=== PATIENT | female | born 1945 | race Two or more races ===

== ENCOUNTER 2020-12-27 03:19 | Emergency (ER) | payer OTHER, MEDICAID ==
[~2020-12-27] VITALS: Ht 149.9 cm; Wt 57.6 kg
[2020-12-27] MEDS ORDERED: MORPHINE SULFATE 4 MG/ML SYR/VIAL IV STA (04:20)
[2020-12-27] MEDS ORDERED: ONDANSETRON HCL 4 MG/2 ML VIAL IV ONE ×2 (04:30→06:30)
[2020-12-27 04:48] LABS: Basophils # (auto) 0 10 ^3/uL (0-0.2); Eosinophils # (auto) 0.1 10 ^3/uL (0-0.8); Eosinophils % (auto) 1.2 % (0.0-7.0)
[2020-12-27 04:49] LABS: Basophils % (auto) 0.2 % (0.0-2.0); Hematocrit 35.2 % (36.0-46.0); Hemoglobin 11.5 g/dL (12.2-16.2); Lymphocytes % (auto) 24.6 % (10.0-50.0); Mean Corpuscular Hemoglobin 25.8 pg (28.0-32.0); Mean Corpuscular Hgb Conc. 32.5 g/dL (32.0-36.0); Mean Corpuscular Volume 79.3 fL (80.0-100.0); Monocytes # (auto) 0.6 10 ^3/uL (0-1.3); Monocytes % (auto) 8.1 % (0.0-12.0); Neutrophils # (auto) 5.3 10 ^3/uL (1.6-8.6); Neutrophils % (auto) 65.9 % (37.0-80.0); Nucleated Red Blood Cells % 0.1 %; Red Blood Cells 4.44 10^6/uL (4.0-5.20); Red Cell Distribution Width 19.3 % (11.8-14.3)
[2020-12-27 05:01] LABS: Potassium 4.1 mmol/L (3.5-5.1)
[2020-12-27 05:10] LABS: Albumin 2.7 g/dL (3.4-5.0); BUN/Creatinine Ratio 34.9; Bilirubin, Total 0.7 mg/dL (0.2-1.0); Calcium 8.6 mg/dL (8.5-10.1); Total Protein 7.1 g/dL (6.4-8.2)
[2020-12-27] MEDS ORDERED: IOHEXOL 300 MG/ML 100ML BOTTLE IJ ONE (06:27)
[2020-12-27] MEDS ORDERED: MORPHINE SULFATE INJECTION 2 MG/ML SYRG IV ONE ×2 (06:30→12:30)
[2020-12-27] MEDS ORDERED: SODIUM CHLORIDE 0.9% 1,000 ML IV ONE (07:00)
[2020-12-27 07:35] LABS: Magnesium 2.5 mg/dL (1.6-2.6)
[2020-12-27] MEDS ORDERED: FLEET MINERAL OIL ENEMA 133 ML PR ONE (08:00)
[2020-12-27 14:00] VITALS: BP 118/46
== END 2020-12-27 16:53 | disposition home or self-care (01) ==
LOC: EDBD 03:19 → ER 03:19 → OVERFLOW 15:43 → UNDOADMIN 15:43 → ER 16:53 → UNDODISIN 16:53
DX: M48.56XA Collapsed vertebra, not elsewhere classified, lumbar region, initial encounter for fracture (principal); K56.7 Ileus, unspecified; E87.1 Hypo-osmolality and hyponatremia; E11.9 Type 2 diabetes mellitus without complications; K56.49 Other impaction of intestine; N20.0 Calculus of kidney; I10 Essential (primary) hypertension; M19.90 Unspecified osteoarthritis, unspecified site; E66.9 Obesity, unspecified; D50.9 Iron deficiency anemia, unspecified; K44.9 Diaphragmatic hernia without obstruction or gangrene; K57.30 Diverticulosis of large intestine without perforation or abscess without bleeding; I25.10 Atherosclerotic heart disease of native coronary artery without angina pectoris; M41.86 Other forms of scoliosis, lumbar region; Z79.899 Other long term (current) drug therapy; X58.XXXA Exposure to other specified factors, initial encounter; Y93.89 Activity, other specified; Y92.89 Other specified places as the place of occurrence of the external cause; Y99.8 Other external cause status
CPT/HCPCS: 36415; 71046; 74176; 74177; 80053; 83690; 83735; 84443; 85025; 93005; 96361; 96374; 96375; 96376; 99285; J2270; J2405; Q9967; G0378

== ENCOUNTER 2025-04-04 21:52 | Emergency (ER) | payer OTHER, MEDICAID ==
[~2025-04-04] VITALS: Ht 149.9 cm; Wt 72.0 kg
[2025-04-04] MEDS ORDERED: EPINEPHrine HCL 1 MG/10 ML SYRG IV ONE (21:53)
--- NOTE | 2025-04-04 22:27 | ED.PDOC ---
SOB-HPI HPI Comments 79-year-old female who came to ER via EMS for shortness of breath. Patient has history of hypertension, diabetes, arthritis and anemia. For the past hour, patient developed sudden onset shortness a breath. Denies any acute chest pains or cough. Denies any fever. Patient was saturating at 75% at room air on scene . Breathing treatment given a provided temporary relief. At 2 L/min patient is saturating 86%. 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 History: No Pertinent TEST FIXTURE DESIGNER History Family History Family History: Reviewed,noncontributory to illness Social History Smoker: Non-Smoker Alcohol: Denies ETOH Use Drugs: Denies Drug Use Lives In: Home Constitutional: reports: weakness; denies: chills, diaphoresis, fatigue, fever, malaise, sweats, others EENTM: denies: blurred vision, double vision, ear bleeding, ear discharge, ear drainage, ear pain, ear ringing, eye pain, eye redness, hearing loss, mouth pain, mouth swelling, nasal discharge, nose bleeding, nose congestion, nose eliazar n, photophobia, tearing, throat pain, throat swelling, voice changes, others Respiratory: reports: SOB at rest, shortness of breath, SOB with excertion; denies: cough, hemoptysis, orthopnea, stridor, wheezing, others Cardiovascular: denies: chest pain, dizzy spells, diaphoresis, Dyspnea on exertion, edema, irregular heart beat, left arm pain, lightheadedness, palpitations, PND, syncope, others Gastrointestinal: denies: abdomen distended, abdominal pain, blood streaked bowels, constipated, diarrhea, dysphagia, difficulty swallowing, hematemesis, melena, nausea, poor appetite, poor fluid intake, rectal bleeding, rectal pain, vomiting, others Genitourinary: denies: abnormal vagina bleeding, burning, dyspareunia, dysuria, flank pain, frequency, hematuria, incontinence, pain, , vagina discharge, urgency, others Neurological: denies: dizziness, fainting, headache, left sided numbness, left sided weakness, numbness, paresthesia, pre-existing deficit, right sided n umbness, right sided weakness, seizure, speech problems, tingling, tremors, weakness, others Musculoskeletal: denies: back pain, gout, joint pain, joint swelling, muscle pain, muscle stiffness, neck pain, others Integumetry: denies: bruises, change in color, change in hair/nails, dryness, laceration, lesions, lumps, rash, wounds, others Allergic/Immunocompromised: denies: Difficulty Healing, Frequent Infections, Hives, Itching, others Hematologic/Lymphatic: denies: anemia, blood clots, easy bleeding, easy bruising, swollen glands, others Endocrine: denies: excessive hunger, excessive sweating, excessive thirst, excessive urination, flushing, intolerance to cold, intolerance to heat, unexplained weight gain, unexplained weight loss, others Psychiatric: denies: anxiety, bipolar disorder, depression, hopeless, panic disorder, schizophrenia, sleepless, suicidal, others Physical Exam General Appearance: No Apparent Distress, Normal HEENT: Normal ENT Inspection, Pharynx Normal, TMs Normal Neck: Full Range of Motion, Non-Tender, Normal, Normal Inspection Respiratory: Chest Non-Tender, Lungs Clear, No Accessory Muscle Use, No Respiratory Distress, Normal Breath Sounds Cardiovascular: No Edema, No JVD, No Murmur, No Gallop, Normal Peripheral Pulses, Regular Rate/Rhythm Breast Exam: Deferred Gastrointestinal: No Organomegaly, Non Tender, No Pulsatile Mass, Normal Bowel Sounds, Soft Genitalia: Deferred Pelvic: Deferred Rectal: Deferred Extremities: No calf tenderness, Normal capillary refill, Normal inspection, Normal range of motion, Non-tender, No pedal edema Musculoskeletal : Apperance: Normal Neurologic: Alert, gas turbine assembler II-XII nml as Tested, No Motor Deficits, Normal Affect, Normal Mood, No Sensory Deficits Cerebellar Function: Normal Reflexes: Normal Skin: Dry, Normal Color, Warm Lymphatic: No Adenopathy Was a procedure done? Was a procedure done?: No Differential Dx Differential Diagnosis: Anxiety, Asthma, CHF, COPD, Myocardial infarction, Pneu monia, Respiratory Distress, Other (Anemia) X-Ray, Labs, Meds, VS Vital Signs Date Time Temp Pulse Resp B/P (MAP) Pulse Ox O2 Delivery O2 Flow Rate FiO2 04/05/25 00:07 87 22 100 Bi-Pap+ 85 85 04/05/25 00:00 87 20 107/44 (65) 100 04/04/25 23:49 96 Bi-Pap+ 85 85 04/04/25 23:30 88 102/58 96 Nasal BiPAP Mask 30 04/04/25 23:00 97.8 89 20 119/82 (94) 91 97.8 04/04/25 22:14 89 04/04/25 21:52 99.5 87 24 110/86 (94) 88 99.5 Lab Test 04/04/25 23:23 04/04/25 22:50 04/04/25 22:27 Range/Units White Blood Count 13.3 H 4.4-10.8 10^3/uL Red Blood Count 4.05 4.0-5.20 10^6/uL Hemoglobin 11.6 L 12.2-16.2 g/dL Hematocrit 36.8 36.0-46.0 % Mean Corpuscular Volume 91.0 80.0-100.0 fL Mean Corpuscular Hemoglobin 28.7 28.0-32.0 pg Mean Corpuscular Hemoglobin Concent 31.6 L 32.0-36.0 g/dL Red Cell Distribution Width 14.7 H 11.8-14.3 % Platelet Count 271 140-450 10^3/uL Mean Platelet Volume 6.7 L 6.9-10.8 fL Neutrophils (%) (Auto) 88.0 H 37.0-80.0 % Lymphocytes (%) (Auto) 4.3 L 10.0-50.0 % Monocytes (%) (Auto) 7.4 0.0-12.0 % Eosinophils (%) (Auto) 0.2 0.0-7.0 % Basophils (%) (Auto) 0.1 0.0-2.0 % Neutrophils # (Auto) 11.7 H 1.6-8.6 10 ^3/uL Lymphocytes # (Auto) 0.6 0.4-5.4 10 ^3/uL Monocytes # (Auto) 1.0 0-1.3 10 ^3/uL Eosinophils # (Auto) 0 0-0.8 10 ^3/uL Basophils # (Auto) 0 0-0.2 10 ^3/uL Nucleated Red Blood Cells 0.1 % Troponin I High Sensitivity Pending 66 *H </=34 ng/L B-Type Natriuretic Peptide Pending Blood Gas Specimen Type Arterial Blood Gas Sample Site Left brachial Blood Gas Patient Temperature 37.0 Arterial Blood Date Drawn [id number] Arterial Blood pH 7.259 L 7.350-7.450 Arterial Blood Partial Pressure CO2 72.7 *H 32.0-45.0 mmHg Arterial Blood Partial Pressure O2 69.6 L 83.0-108.0 mmHg Arterial Blood HCO3 31.8 H 21.0-28.0 mmol/L Arterial Blood Oxygen Saturation 91.7 L 94.0-98.0 % Arterial Blood Base Excess 2.8 -2.0-3.0 mmol/L Arterial Blood Oxyhemoglobin 90.0 L 94.0-98.0 % Arterial Blood Carboxyhemoglobin 1.4 0.5-1.5 % Arterial Blood Methemoglobin 0.5 0.0-1.5 % Roosevelt Test N/a Blood Gas Total Hemoglobin 12.70 12.0-16.0 g/dL Blood Gas Liter Flow 4.00 Blood Gas Modality Mask - bipap FiO2 % 36.0 Blood Gas Critical Value Read Back yes Blood Gas Notified Whom mohit Retana md Blood Gas Notified Time [id number] Blood Gas Notified By pablo woodruff, Prothrombin Time 10.4 9.3-11.8 sec Prothrombin Time INR 0.98 0.9-1.15 Activated Partial Thromboplast Time 21.9 L 24.5-34.5 SEC Sodium Level 138 136-145 mmol/L Potassium Level 3.7 3.5-5.1 mmol/L Chloride Level 101 98-107 mmol/L Carbon Dioxide Level 27 20-31 mmol/L Anion Gap 10 5-15 Blood Urea Nitrogen 30 H 9-23 mg/dL Creatinine 1.56 H 0.550-1.02 mg/dL Glomerular Filtration Rate Calc 33 >90 mL/min BUN/Creatinine Ratio 19.2 10.0-20.0 Serum Glucose 144 H 74-106 mg/dL Calcium Level 9.0 8.7-10.4 mg/dL Magnesium Level 2.5 1.6-2.6 mg/dL Total Bilirubin 0.4 0.2-1.0 mg/dL Aspartate Amino Transferase (AST) 21 13-40 U/L Alanine Aminotransferase (ALT) 10 7-40 U/L Alkaline Phosphatase 97 46-116 U/L Total Protein 7.7 5.7-8.2 g/dL Albumin 4.1 3.2-4.8 g/dL CHEST RADIOGRAPH Indication: SOB Technique: Single frontal view of the chest was obtained COMPARISON: None FINDINGS: Lines and Tubes: None Lungs: Mild diffuse increased prominence of the pulmonary vasculature. No evidence of focal consolidation. Pleura: No effusion. No pneumothorax. Cardiomediastinal contours: Cardiomegaly. Atherosclerotic vascular calcifications. Bones: Unremarkable IMPRESSION: 1. No acute disease. 2. Mild diffuse increased prominence of the pulmonary vasculature. 3. Cardiomegaly. Time of 1ST Reevaluation: 22:23 Reevaluation 1ST: Unchanged Patient Education/Counseling: Diagnosis, Treatment Family Education/Counseling: No Family Present Departure 1 Departure Time of Disposition: 00:12 Impression: Primary Impression: Respiratory failure with hypoxia and hypercapnia Additional Impressions: COPD with acute exacerbation Acute coronary syndrome Disposition: ADMITTED INPATIENT Admit to: Tele Condition: Guarded Comments 79F with Acute Respiratory Distress Chief Complaint: Shortness of breath History of Present Illness: 79-year-old female with history of COPD, brought in by EMS from home due to acute shortness of breath. On initial assessment by EMS, patient was found to be hypoxic with oxygen saturations in mid-70s to low 80s on room air, which improved to low-mid 90s with supplemental oxygen. In the ED, patient received nebulizer treatment. Notably, initial workup revealed elevated troponins and acu te kidney injury, suggesting multiple organ involvement in her acute presentation. Review of Systems: Constitutional: Acute distress with respiratory symptoms Respiratory: Shortness of breath, hypoxia Cardiovascular: No chest pain reported Otherwise limited due to acute presentation Medications: Not documented in current mortgage closing clerk Allergies: Not documented in current mortgage closing clerk Past Medical History: 1. Chronic Obstructive Pulmonary Disease (COPD) 2. Hypertension 3. Diabetes 4. Arthritis 5. Anemia Vital Signs: O2 Saturation: 70s-80s% on room air O2 Saturation: Low-mid 90s% on supplemental oxygen Physical Exam: Limited physical exam documentation in mortgage closing clerk Lab Results: CBC: - WBC: 13.3 (Elevated) - Hemoglobin: 11.6 - Hematocrit: 36.8 - Platelets: 271 (Normal) Blood Gas: - pH: 7.26 (Low) - pCO2: 73 (Elevated) Chemistry: - Creatinine: 31.56 (Severely elevated) Cardiac Enzymes: - Initial Troponin: 66 - Repeat Troponin: 77 (Uptrending) Imaging and Other Relevant Results: Chest X-ray: - Cardiomegaly present - No acute pathology noted Medical Decision Making: Summary Statement: 79-year-old female with multiple comorbidities presenting with acute respiratory distress, found to have COPD exacerbation complicated by acute coronary syndrome and acute kidney injury. Problem List: 1. Acute on chronic respiratory failure with hypoxia and hypercapnia 2. COPD exacerbation 3. Acute coronary syndrome 4. Acute kidney injury Differential Diagnosis: COPD exacerbation, Acute coronary syndrome, CHF exacerbation, Pneumonia, Pulmonary embolism, Acute kidney injury ED Course: Patient received nebulizer treatment, aspirin, and was placed on BiPAP. Decision made to admit patient due to multiple acute medical issues requiring inpatient management. Assessment and Plan: 1. Acute on chronic respiratory failure with hypoxia and hypercapnia: - Continue BiPAP support - Bronchodilator therapy - Close monitoring of respiratory status 2. COPD Exacerbation: - Continue bronchodilators - Consider systemic steroids - Supplemental oxygen as needed 3. Acute Coronary Syndrome: - Initiated on aspirin - Serial troponin monitoring - Cardiology consultation recommended 4. Acute Kidney Injury: - Monitor fluid status - Avoid nephrotoxic medications - Serial creatinine monitoring Disposition: Admit to hospital for management of multiple acute medical issues Billing Information: ICD-10: J44.1 - COPD with acute exacerbation ICD-10: J96.21 - Acute and chronic respiratory failure with hypoxia ICD-10: J96.22 - Acute and chronic respiratory failure with hypercapnia ICD-10: I21.9 - Acute myocardial infarction, unspecified ICD-10: N17.9 - Acute kidney failure, unspecified Critical Care Note Critical Care Time?: Yes (45 min-critical care time only) Critical care comment: Shortness a breath, bipap Total critical care time: Approximately 36 minutes Due to a high probability of clinically significant, life threatening deterioration, the patient required my highest level of preparedness to interv xu emergently and I personally spent this critical care time directly and personally managing the patient. This critical care time included obtaining a history; examining the patient; pulse oximetry; ordering and review of studies; arranging urgent treatment with development of a management plan; evaluation of patient's response to treatment; frequent reassessment; and, discussions with other providers. This critical care time was performed to assess and manage the high probability of imminent, life-threatening deterioration that could result in multi-organ failure. It was exclusive of separately billable procedures and treating other patients. Stability Stability form required: No Heart Score Heart Score: Heart Score Response (Comments) Value History Moderate Suspicious 1 EKG Repolarization Disturb 1 Age >65 2 Risk Factors >3 or Hx ASHD 2 Troponin >3 x's Normal limit 2 Total 8 I personally scribed for MARIA INES RETANA MD (RYDER) on 04/04/25 at 22:27. Electronically submitted by Cal Mosley ([facility] [employer] I personally scribed for MARIA INES RETANA MD (RYDER) on 04/04/25 at 22:33. Electronically submitted by Cal Mosley ([facility] [employer]). I personally scribed for MARIA INES RETANA MD (RYDER) on 04/04/25 at 23:16. Electronically submitted by Cal Mosley ([facility]). I personally scribed for MARIA INES RETANA MD (RYDER) on 04/04/25 at 23:22. Electronically submitted by Cal Mosley ([facility]). MARIA INES RETANA MD Apr 04, 2025 22:27
--- NOTE | 2025-04-04 22:50 | DVH ---
CHEST RADIOGRAPH Indication: SOB Technique: Single frontal view of the chest was obtained COMPARISON: None FINDINGS: Lines and Tubes: None Lungs: Mild diffuse increased prominence of the pulmonary vasculature. No evidence of focal consolida tion. Pleura: No effusion. No pneumothorax. Cardiomediastinal contours: Cardiomegaly. Atherosclerotic vascular calcifications. Bones: Unremarkable IMPRESSION: 1. No acute disease. 2. Mild diffuse increased prominence of the pulmonary vasculature. 3. Cardiomegaly.
[2025-04-04 22:54] LABS: Base Excess 2.8 mmol/L (-2.0-3.0)
[2025-04-04 23:00] VITALS: TEMP 97.8
[2025-04-04 23:13] LABS: INR 0.98 (0.9-1.15); Partial Thromboplastin Time 21.9 SEC (24.5-34.5); Prothrombin Time 10.4 sec (9.3-11.8)
--- NOTE | 2025-04-04 23:25 | ECG ---
[facility] Test Date: 2025-04-04 Test Time: 22:14:32 Pat Name: LIMA ALLEN Department: ED Room: Gender: F Barmaid: MYLES : 1945 Requested By: MARIA INES RETANA Order Number: [id number] Reading MD: Wiliam Oneill Measurements Intervals [place] Rate: 89 P: 64 W[place]: 151 QRS: 37 QRSD: 85 T: 49 QT: 354 QTc: 431 Interpretive Statements Sinus rhythm Probable left atrial enlargement Borderline T abnormalities, anterior leads Minimal ST elevation, inferior leads Electronically Signed On 04-09-2025 20:44:47 PDT by Wiliam Oneill Please click the below link to view image of tracing.
[2025-04-04 23:30] VITALS: BP 102/58; PULSE 88; O2SAT 96
[2025-04-04 23:36] LABS: Alanine Aminotransferase 10 U/L (7-40); Albumin 4.1 g/dL (3.2-4.8); Alkaline Phosphatase 97 U/L (46-116); Anion Gap 10 (5-15); Aspartate Aminotransferase 21 U/L (13-40); BUN/Creatinine Ratio 19.2 (10.0-20.0); Bilirubin, Total 0.4 mg/dL (0.2-1.0); Carbon Dioxide 27 mmol/L (20-31); Chloride 101 mmol/L (98-107); Magnesium 2.5 mg/dL (1.6-2.6); Potassium 3.7 mmol/L (3.5-5.1); Sodium 138 mmol/L (136-145); Total Protein 7.7 g/dL (5.7-8.2)
[2025-04-04 23:43] LABS: Blood Urea Nitrogen 30 mg/dL (9-23); Glucose 144 mg/dL (74-106)
[2025-04-04 23:50] LABS: Basophils # (auto) 0 10 ^3/uL (0-0.2); Basophils % (auto) 0.1 % (0.0-2.0); Eosinophils # (auto) 0 10 ^3/uL (0-0.8); Eosinophils % (auto) 0.2 % (0.0-7.0); Hematocrit 36.8 % (36.0-46.0); Hemoglobin 11.6 g/dL (12.2-16.2); Lymphocytes # (auto) 0.6 10 ^3/uL (0.4-5.4); Lymphocytes % (auto) 4.3 % (10.0-50.0); Mean Corpuscular Hemoglobin 28.7 pg (28.0-32.0); Mean Corpuscular Hgb Conc. 31.6 g/dL (32.0-36.0); Monocytes % (auto) 7.4 % (0.0-12.0); Neutrophils # (auto) 11.7 10 ^3/uL (1.6-8.6); Nucleated Red Blood Cells % 0.1 %; Platelet Count (auto) 271 10^3/uL (140-450); Red Blood Cells 4.05 10^6/uL (4.0-5.20); Red Cell Distribution Width 14.7 % (11.8-14.3); White Blood Cell 13.3 10^3/uL (4.4-10.8)
[2025-04-05] VITALS: BP 107/44
[2025-04-05 00:07] VITALS: PULSE 87; RESP 22; O2SAT 100
[2025-04-05 01:16] LABS: Base Excess 4.1 mmol/L (-2.0-3.0)
[2025-04-05] MEDS ORDERED: ETOMIDATE (2MG/ML) 20ML VIAL IV ONE ×2 (01:30→01:31)
[2025-04-05] MEDS ORDERED: ROCURONIUM 10MG/ML 10ML VIAL IV ONE (01:30)
[2025-04-05 01:42] LABS: Urine Bacteria None Seen /hpf (None Seen)
[2025-04-05 01:51] LABS: Urine Blood Negative /uL (Negative); Urine Clarity Clear (Clear); Urine Color Light-Yellow (Yellow); Urine Hyaline Cast FEW /lpf (0 - 2); Urine Protein, UAD TRACE (Negative); Urine Specific Gravity 1.014 (1.001-1.035); Urine Squamous Epithelial Cell FEW /hpf (<5); Urine Urobilinogen Normal (Negative); Urine WBC 2 /HPF (0-5)
--- NOTE | 2025-04-05 02:41 | RESUS ---
CODE BLUE ASSESSSMENT History of Events History of Events: Pt lost pulses during intubation. CODE BLUE called. Initial Information Date: Apr 05, 2025 Time: :46 Location of Arrest: ER Arrest Witnessed: Yes CPR started initial time: : CPR started by whom: Hospital Staff Pre-Hospital Care: Pre-Code Care (inpatient) Type of arrest: Cardiac, Respiratory, Adult, Witnessed Spontaneous Respirations: No Pulse Present: No Monitoring: ECG, Pulse Oximetry, Telemetry Crash Cart Opened and Supplies: Yes Airway Ventilation Breathing at Onset: Assisted Oxygen Delivery Method: Ambu-Bag Time of first Assisted Ventila: :46 Artificial Ventilation: Bag/Mask Intubation Time: :55 Intubation Size: 6.5 cuffed Intubated by: Alex Intubation Attempts: 6 Intubated orally: Yes Intubated Nasaly: No Tube secured at: 22 (cm @ lip) Cricoid pressure done: Yes CO2 indicator used: Yes Confirmation: Auscultation, Exhaled CO2, Chest X-ray Suctioning (Oral/Tracheal): Yes Comments: Intubation attempted x5 prior to pt going into cardiac arrest. Circulation Circulation #1: Time: :46 Pulse Rate (adult): 0 Blood Pressure Systolic: 0 Blood Pressure Diastolic: 0 Temperature (Fahrenheit): 100.2 Circulation Comment: Asystole Circulation #2: Time: 01:48 Pulse Rate (adult): 0 Blood Pressure Systolic: 0 Blood Pressure Diastolic: 0 Circulation Comment: PEA Circulation #3: Time: 01:50 Pulse Rate (adult): 145 Blood Pressure Systolic: 159 Blood Pressure Diastolic: 54 Circulation Comment: ROSC achieved Circulation #4: Time: 01:55 Pulse Rate (adult): 0 Blood Pressure Systolic: 0 Blood Pressure Diastolic: 0 Circulation Comment: Pulses lost; pt PEA on monitor with inability to palpapte pulse or garbage pick up man with doppler; CODE BLUE called Circulation #5: Time: 01:57 Pulse Rate (adult): 0 Blood Pressure Systolic: 0 Blood Pressure Diastolic: 0 Circulation Comment: PEA Circulation #6: Time: 01:59 Pulse Rate (adult): 0 Blood Pressure Systolic: 0 Blood Pressure Diastolic: 0 Circulation Comment: Asystole Circulation #7: Time: 02:01 Pulse Rate (adult): 0 Blood Pressure Systolic: 0 Blood Pressure Diastolic: 0 Circulation Comment: PEA Circulation #8: Time: 02:03 Pulse Rate (adult): 0 Blood Pressure Systolic: 0 Blood Pressure Diastolic: 0 Circulation Comment: Asystole Circulation #9: Time: 02:05 Pulse Rate (adult): 0 Blood Pressure Systolic: 0 Blood Pressure Diastolic: 0 Circulation Comment: Asystole; TOD Procedure - IV Procedure - IV #1: IV Side: Right IV Location: Hand IV Catheter Type: Saline Lock IV Placed: In Hospital IV Gauge: 20 IV Line Care: Saline Flush Comment IV placed prior to start of code Procedure - IV #2: IV Side: Right IV Location: Hand IV Catheter Type: Saline Lock IV Placed: In Hospital IV Gauge: 20 IV Line Care: IV Discontinued Comment IV infiltrated and began leaking during code while attempting to push EPI; d/c'ed at 0158 Procedure - Intraosseous Time of intraosseous: 02:00 Size of intraosseous: 15 Site of Intraosseous: Tibia torrey-medial (R proximal tibia) Intraosseous inserted by: Brooks Shetty RN Number of attempts for Intraos: 1 Medications & Response Medications and Responses #1: Medication Time: 01:47 ADULT Medications Given ADULT: Epinephrine 1 mg Route of Administration: IV Heart Rate: 0 Blood Pressure Systolic: 0 Blood Pressure Diastolic: 0 Respiratory Rate: 0 Medications and Responses #2: Medication Time: 01:48 ADULT Medications Given ADULT: Sodium Bacarbinate 50 meq Route of Administration: IV Heart Rate: 0 Blood Pressure Systolic: 0 Blood Pressure Diastolic: 0 Respiratory Rate: 0 Medications and Responses #3: Medication Time: 01:55 ADULT Medications Given ADULT: Epinephrine 1 mg Route of Administration: IV Heart Rate: 0 Blood Pressure Systolic: 0 Blood Pressure Diastolic: 0 Respiratory Rate: 0 Medications and Responses #4: Medication Time: 01:57 ADULT Medications Given ADULT: Sodium Bacarbinate 50 meq Route of Administration: IV Heart Rate: 0 Blood Pressure Systolic: 0 Blood Pressure Diastolic: 0 Respiratory Rate: 0 Medications and Responses #5: Medication Time: 01:58 ADULT Medications Given ADULT: Epinephrine 1 mg Route of Administration: IV Medication Comment: Will attempting to push EPI, IV line was observed to be leaking; EPI removed Heart Rate: 0 Blood Pressure Systolic: 0 Blood Pressure Diastolic: 0 Respiratory Rate: 0 Medications and Responses #6: Medication Time: 02:00 Route of Administration: IO Medication Comment: Remaining portion of EPI administered through IO access once achieved Heart Rate: 0 Blood Pressure Systolic: 0 Blood Pressure Diastolic: 0 Respiratory Rate: 0 Medications and Responses #7: Medication Time: 02:04 ADULT Medications Given ADULT: Epinephrine 1 mg Route of Administration: IO Heart Rate: 0 Blood Pressure Systolic: 0 Blood Pressure Diastolic: 0 Respiratory Rate: 0 Nurses Notes [place] Coma Scale Eye Opening: None (1) Dex Coma Scale Verbal: None (1) Dex Coma Scale Motor: None (1) [place] Total: 3 Pupil Reaction: Sluggish Bedside Blood Glucose: 145 Nurses Notes - Comment: @ 0150 - ROSC achieved @ 0155 - Pulses lost; CODE BLUE called @ 0156 - Dr Johnson attempted to place 14g needle for decompression to right side of chest; unsuccessful @ 0203 - Xray at bedside for emergent XR to assess for possible pnuemo per Dr Johnson instructions Time Code Ended Time Code Ended: 02:05 Post Arrest Status: Outcome of code: Unsuccessful Patient pronounced by: Dr Johnson Time patient pronounced: 02:05 Family notified: Yes Attending called: Yes Code Team Present: Dr Johnson - ER MD; Brooks Shetty RN - ER Charge; Gaby Wynne RN - Painter Bottom; Ángela Segal, RT; Shameka Salazar, RT; Blanca Salazar, RN; Rupesh Godwin, RN; Amaya Wynne, RN; Paxton Godwin, ERT; Jenn Florentino, ERT; Natalia Segal, ERT; Angel Leung, EMT student Gaby Cornejo Apr 05, 2025 02:41
--- NOTE | 2025-04-05 04:56 | DVH ---
CHEST RADIOGRAPH Indication: INTUBATION Technique: Single frontal view of the chest was obtained COMPARISON: XY CHEST PORTABLE on DOS: 04/04/25 FINDINGS: Lines and Tubes: Endotracheal tube tip projects approximately 3.2 cm above the level of the inez. Lungs: There is moderate right pneumothorax. Patchy multifocal bilateral pulmonary airspace disease a nd there is extensive bilateral subcutaneous emphysema. Cardiomediastinal contours: Cardiomegaly. Bones: Unremarkable IMPRESSION: 1. Right pneumothorax status post intubation. 2. Extensive bilateral subcutaneous emphysema. 3. Cardiomegaly. Critical Result: Pneumothorax Findings discussed with Dr. Johnson at 04/05/2025 07:52 AM, and acknowledged receipt and understanding of the findings.
== END 2025-04-05 02:05 ==
LOC: ER 21:52 → EDBD 21:52 → ER 04-05 02:05
DX: J96.91 Respiratory failure, unspecified with hypoxia (principal); J96.92 Respiratory failure, unspecified with hypercapnia; J44.1 Chronic obstructive pulmonary disease with (acute) exacerbation; I24.9 Acute ischemic heart disease, unspecified; M19.90 Unspecified osteoarthritis, unspecified site; I11.0 Hypertensive heart disease with heart failure; E11.9 Type 2 diabetes mellitus without complications; I46.9 Cardiac arrest, cause unspecified; I50.9 Heart failure, unspecified; Z86.2 Personal history of diseases of the blood and blood-forming organs and certain disorders involving the immune mechanism
CPT/HCPCS: 31500; 36415; 36600; 36680; 71045; 80053; 81001; 82805; 82947; 83735; 83880; 84484; 85025; 85610; 85730; 92950; 93005; 94660; 99291; J0171; 82962